=== PATIENT | female | born 1935 | race Two or more races ===

== ENCOUNTER 2018-02-04 09:22 | Outpatient (CLI) | payer OTHER ==
[~2018-02-04] VITALS: Ht 165.1 cm; Wt 74.8 kg
== END 2018-02-04 09:40 | disposition home or self-care (01) ==
LOC: OFIC 805 09:22
DX: H90.3 Sensorineural hearing loss, bilateral (principal); H93.11 Tinnitus, right ear; L30.8 Other specified dermatitis